=== PATIENT | female | born 1990 | race African-American/Black ===

== ENCOUNTER 2017-05-30 01:12 | Inpatient (IN) | payer MEDICAID ==
[~2017-05-30] VITALS: Ht 167.6 cm; Wt 65.0 kg
[2017-05-30] VITALS (15 sets, daily range): BP systolic 109–132; BP diastolic 64–80; Ht 167.6 cm; Wt 65.0 kg
[2017-05-30] MEDS ORDERED: PRENATAL COMPLE1 TAB PO (01:34)
[2017-05-30 02:53] LABS: APPEARANCE CLEAR (CLEAR); BILIRUBIN NEGATIVE (NEGATIVE); COLOR YELLOW (YELLOW); GLUCOSE NEGATIVE (NEGATIVE); KETONE NEGATIVE (NEGATIVE); NITRITE NEGATIVE (NEGATIVE); PROTEIN NEGATIVE (NEGATIVE); SPECIFIC GRAVITY 1.015 (1.005-1.020); UROBILINOGEN NORMAL (NORMAL)
[2017-05-30 02:57] LABS: HEMATOCRIT 33.1 % (36.0-48.0); HEMOGLOBIN 10.6 g/dL (12-16); MCH 24.7 pg (26.0-34.0); MEAN PLATELET VOLUME 10.5 fL (7.4-10.4); RBC 4.3 10x6/uL (4.00-5.40); RDW 14.2 % (11.5-14.5); WBC 10.9 10x3/uL (4.8-10.8)
[2017-05-30 03:00] LABS: UDS - AMPHET NEGATIVE QUAL (NEGATIVE); UDS - BARB NEGATIVE QUAL (NEGATIVE); UDS - BENZO NEGATIVE QUAL (NEGATIVE); UDS - COCAINE NEGATIVE QUAL (NEGATIVE); UDS - OPIATE NEGATIVE QUAL (NEGATIVE); UDS - PCP NEGATIVE QUAL (NEGATIVE); UDS - THC POSITIVE QUAL (NEGATIVE)
[2017-05-30 03:10] LABS: HIV 1 & 2- RAPID SCREEN NEGATIVE (NEGATIVE)
[2017-05-31 06:01] LABS: BASOPHILS 0.1 % (0-2); EOSINOPHILS 0.1 % (0-7); HEMATOCRIT 29.8 % (36.0-48.0); HEMOGLOBIN 9.4 g/dL (12-16); IMMATURE GRANULOCYTES 0.4 % (0-5); LYMPHOCYTES 13.1 % (15-50); MCH 24.2 pg (26.0-34.0); MCHC 31.5 g/dL (31.0-37.0); MCV 76.8 fL (80.0-100.0); MEAN PLATELET VOLUME 9.9 fL (7.4-10.4); MONOCYTES 8.1 % (2-11); NEUTROPHILS 78.2 % (40-80); RBC 3.88 10x6/uL (4.00-5.40); RDW 14.2 % (11.5-14.5)
[2017-05-31 06:04] LABS: PLATELET COUNT 169 10x3/uL (130-400); WBC 16.5 10x3/uL (4.8-10.8)
[2017-05-31 08:44] VITALS: BP 110/70
[2017-05-31 13:10] VITALS: BP 117/75
[2017-05-31 19:15] VITALS: BP 126/83
[2017-05-31 23:25] VITALS: BP 113/74
[2017-06-01] MEDS ORDERED: HYDROCODON-ACE1 EAC7 PO (08:05)
[2017-06-01] MEDS ORDERED: IBUPROFEN600 MG PO (08:06)
[2017-06-01 08:19] VITALS: BP 129/79
[2017-06-02 03:10] LABS: RAPID PLASMA REAGIN Non Reactive (Non Reactive)
[2017-06-03 12:19] LABS: UDSC - AMPHET Negative ng/mL (Cutoff=1000); UDSC - BARB Negative ng/mL (Cutoff=300); UDSC - BENZO Negative ng/mL (Cutoff=300); UDSC - COC Negative ng/mL (Cutoff=300); UDSC - METH Negative ng/mL (Cutoff=300); UDSC - OPIATES Negative ng/mL (Cutoff=300); UDSC - PCP Negative ng/mL (Cutoff=25); UDSC - PROPOXY Negative ng/mL (Cutoff=300); UDSC - THC Positive (Cutoff=50)
== END 2017-06-01 13:00 | disposition home or self-care (01) | DRG 766 ==
LOC: D.LDO 01:12 → D.LD 01:25
PROVIDERS: Obstetrics & Gynecology
PROC: 10D00Z1 Extraction of Products of Conception, Low, Open Approach (ICD-10-PCS; principal; 2017-05-30 10:29)
DX: O99.324 Drug use complicating childbirth (principal); F12.90 Cannabis use, unspecified, uncomplicated; O76 Abnormality in fetal heart rate and rhythm complicating labor and delivery; Z3A.39 39 weeks gestation of pregnancy; Z37.0 Single live birth

== ENCOUNTER 2019-06-27 06:52 | Inpatient (IN) | payer MEDICAID ==
[~2019-06-27] VITALS: Ht 168.7 cm; Wt 65.8 kg
[~2019-06-27 06:52] MED LIST: HYDROCODON-ACE1 EAC7 PO; IBUPROFEN600 MG PO; PRENATAL COMPLE1 TAB PO
[2019-06-27 07:49] LABS: HEMATOCRIT 38.6 % (36.0-48.0); HEMOGLOBIN 12.2 g/dL (12-16); MCH 24.7 pg (26.0-34.0); MCHC 31.6 g/dL (31.0-37.0); MCV 78.3 fL (80.0-100.0); MEAN PLATELET VOLUME 10.1 fL (7.4-10.4); RBC 4.93 10x6/uL (4.00-5.40); RDW 14.8 % (11.5-14.5); WBC 13.9 10x3/uL (4.8-10.8)
[2019-06-27 08:23] LABS: HIV 1 & 2- RAPID SCREEN NEGATIVE (NEGATIVE)
[2019-06-27 08:53] LABS: UDS - AMPHET NEGATIVE QUAL (NEGATIVE); UDS - BARB NEGATIVE QUAL (NEGATIVE); UDS - BENZO NEGATIVE QUAL (NEGATIVE); UDS - COCAINE NEGATIVE QUAL (NEGATIVE); UDS - OPIATE NEGATIVE QUAL (NEGATIVE); UDS - PCP NEGATIVE QUAL (NEGATIVE); UDS - THC POSITIVE QUAL (NEGATIVE)
[2019-06-27 11:18] VITALS: BP 121/75; Ht 168.7 cm; Wt 65.8 kg
[2019-06-27 16:00] VITALS: BP 126/75
--- NOTE | 2019-06-27 16:29 | NUR ---
PT C/O PAIN TO PERINEUM OF "3" ON 0-10 PAIN SCALE. MOTRIN 600 MG, DERMAPLAST SPRAY AND TUCKDS GIVEN TO PT ORDERED. INSTRUCTED ON ALL MEDS. VERBALIZES UNDERSTANDING.
--- NOTE | 2019-06-27 17:25 | NUR ---
PT SITTING UP IN BED. CARING FOR INFANT. STATES PAIN RELIEVED BY PAIN MED. DENIES C/O OR NEEDS. FRESH ICE WATER PROVIDED.
[2019-06-27 19:15] VITALS: BP 117/77
--- NOTE | 2019-06-27 19:15 | NUR ---
ASSESSMENT PER FLOW SHEET, VS OBTAINED, SALINE LOCK IN LEFT WRIST INTACT WITH NO REDNESS OR EDEMA, FF, ML, U/1, LITE-MOD BLEEDING WITH NO CLOTS NOTED, PT DENIES FLATUS, NO BM AND VOIDING WITH NO DIFFICULTY, PT DENIES NEEDS OR PAIN AT THIS TIME, BED IN LOW POSITION, SIDE RAILS X 2, CALL LIGHT IN REACH, INFANT IN OPEN CRIB CART AND FOB AT BEDSIDE
--- NOTE | 2019-06-27 20:33 | NUR ---
PT BOTTLE FEEDING INFANT, REPORTS CRAMPING, INFORMED PT THAT I WILL ADM MOTRIN AT 10:30PM WHEN DUE, PT VERBALIZES UNDERSTANDING, PT REQUESTED AND SERVED FRESH H20, DENIES FURTHER NEEDS
--- NOTE | 2019-06-27 21:43 | NUR ---
PT VISITING WITH FOB, IN OPEN CRIB CART AT BEDSIDE, PT STATES "THE CRAMPING JUST COMES AND GOES, AND I WOULD SAY IT'S A 6-7/10 WHEN I START CRAMPING", INFORMED PT THAT I WILL BE IN AT 10:30 TO ADM CHETAN, PT STATES "THAT SOUNDS GOOD", PT DENIES NEEDS AT THIS TIME
--- NOTE | 2019-06-27 22:30 | NUR ---
PT AWAKE, FOB TO [place]CR[place], ADM MOTRIN PER MD ORDERS, SEE EMAR, PT DENIES FURTHER NEEDS, IN OPEN CRIB CART AT BEDSIDE
--- NOTE | 2019-06-27 23:22 | NUR ---
PT BOTTLE FEEDING INFANT, DENIES NEEDS OR PAIN, FOB ASLEEP AT BEDSIDE
--- NOTE | 2019-06-28 01:08 | NUR ---
PT AWAKE, PT REQUESTED AND PROVIDED GOWN, SPILLED WATER ON OTHER GOWN, PT DENIES FURTHER NEEDS OR PAIN, FOB AT BEDSIDE, IN NSY AT THIS TIME
--- NOTE | 2019-06-28 02:15 | NUR ---
PT RESTING WITH EYES CLOSED, AROUSES TO SOFT VERBAL STIMULATION, TO ROOM VIA OPEN CRIB CART PER THIS RN, BANDS CHECKED, PT DENIES NEEDS OR PAIN AT THIS TIME, FOB AROUSES ALSO
--- NOTE | 2019-06-28 03:34 | NUR ---
PT RESTING WITH EYES CLOSED, RESP QUIET, NO DISTRESS NOTED, LEFT UNDISTURBED AT THIS TIME, IN OPEN CRIB CART AND FOB ASLEEP AT BEDSIDE
--- NOTE | 2019-06-28 05:28 | NUR ---
PT AWAKE, LOOKING AT CELL PHONE, DENIES NEEDS OR PAIN AT THIS TIME, INFANT IN OPEN CRIB CART AND FOB ASLEEP AT BEDSIDE
[2019-06-28 06:06] LABS: BASOPHILS 0.2 % (0-2); EOSINOPHILS 0.2 % (0-7); HEMATOCRIT 35.9 % (36.0-48.0); HEMOGLOBIN 11.1 g/dL (12-16); IMMATURE GRANULOCYTES 0.4 % (0-5); LYMPHOCYTES 20.3 % (15-50); MCH 24.3 pg (26.0-34.0); MCHC 30.9 g/dL (31.0-37.0); MCV 78.6 fL (80.0-100.0); MEAN PLATELET VOLUME 10.1 fL (7.4-10.4); NEUTROPHILS 70.9 % (40-80); PLATELET COUNT 250 10x3/uL (130-400); RBC 4.57 10x6/uL (4.00-5.40); RDW 14.6 % (11.5-14.5); WBC 12.9 10x3/uL (4.8-10.8)
[2019-06-28 06:08] LABS: RAPID PLASMA REAGIN Non Reactive (Non Reactive)
[2019-06-28 07:30] VITALS: BP 135/60
--- NOTE | 2019-06-28 07:30 | NUR ---
TO ROOM FOR VS AND ASSESSMENT. SEE FLOWSHEET. IN ROOM. NO COMPLAINTS OF PAIN; NO NEEDS AT THIS TIME.
[2019-06-28 08:09] LABS: HEPATITIS C ANTIBODY 0.2 S/CO RAT (0.0-0.9)
--- NOTE | 2019-06-28 09:30 | NUR ---
FOB IN ROOM. PT UP TO SHOWER. IV SITE COVERED.
[2019-06-28 10:08] LABS: RUBELLA IGG 5.13 index (Immune >0.99)
[2019-06-28 11:08] LABS: HGB SOLUBILITY (SICKLE SCREEN) Negative (Negative)
--- NOTE | 2019-06-28 12:10 | NUR ---
DR. ROJAS IN TO SEE PT. ORDERS RECEIVED TO DISCHARGE HOME AND FOLLOW-UP IN OFFICE IN 6 WEEKS. JULY ROOM-IN UNTIL IS DISCHARGED.
[2019-06-28] MEDS ORDERED: IBUPROFEN600 MG (12:34)
--- NOTE | 2019-06-28 14:15 | NUR ---
IV D/C'D. CATHETER INTACT. PRESSURE DRESSING APPLIED. NO BLEEDING NOTED. REVIEWED DISCHARGE INSTRUCTIONS AND ROOMING IN POLICY WITH PATIENT; STATES UNDERSTANDING. FOLLOW-UP APPOINTMENT MADE AND GIVEN TO PATIENT. PATIENT DISCHARGED HOME. ROOMING IN UNTIL INFANT IS DISCHARGED.
== END 2019-06-28 14:48 | disposition home or self-care (01) | DRG 807 ==
LOC: D.LDO 06:52 → D.LD 08:56 → D.WS 08:56
PROVIDERS: ADMIT Student in an Organized Health Care Education/Training Program; ATTEND Student in an Organized Health Care Education/Training Program
PROC: 10E0XZZ Delivery of Products of Conception, External Approach (ICD-10-PCS; principal; 2019-06-27)
PROC: 0HQ9XZZ Repair Perineum Skin, External Approach (ICD-10-PCS; 2019-06-27)
DX: O76 Abnormality in fetal heart rate and rhythm complicating labor and delivery (principal); Z37.1 Single stillbirth; O69.81X0 Labor and delivery complicated by cord around neck, without compression, not applicable or unspecified; Z3A.38 38 weeks gestation of pregnancy; O70.0 First degree perineal laceration during delivery